=== PATIENT | female | born 1995 | race Caucasian/White ===

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

== ENCOUNTER 2017-06-16 14:52 | Emergency (ER) | payer BC ==
[2017-06-16 16:19] VITALS: BP 132/87
--- NOTE | 2017-06-16 17:16 | UC ---
Shoulder Pain HPI - HPI Summary HPI Summary: Pt c/o left shoulder pain s/p falling from a chair last night while intoxicated. Pt was sitting and slipped and fell onto left shoulder. Woke this morning with pain with ROM. 2. Pt c/o cough x4 days and has concern that she has "bronchitis" - History of Current Complaint Chief Complaint: UCUpperExtremity Stated Complaint: INJ LT SHOULDER,COUGH,CHANCE Time Seen by Provider: 06/16/17 16:34 Hx Obtained From: Patient Hx Last Menstrual Period: 3 WKS AGO ?: No Onset/Duration: Sudden Onset Timing: Constant - shoulder Severity Initially: Mild - pt was intoxicated when she fell Severity Currently: Moderate - s/p fall from sitting position. Location Of Pain: Is Discrete @ - left shoulder Character: Dull, Aching, Stiffness Aggravating Factor(s): Movement Alleviating Factor(s): Rest Associated Signs And Symptoms: Positive: Bruising Related History: Dominant Hand Right - Risk Factors Non-Orthopedic Risk Factor: Negative DVT Risk Factors: Oral Contraceptives Septic Arthritis Risk Factor: Negative - Allergies/Home Medications Allergies/Adverse Reactions: Allergies Allergy/AdvReac Type Severity Reaction Status Date / Time No Known Allergies Allergy Verified 06/16/17 16:19 Home Medications: Home Medications Norethindrone Acetate-Ethinyl [Lo Loestrin Fe 1 mg-10 Mcg / 10 Mcg] 1 tab PO DAILY 06/16/17 [History Confirmed 06/16/17] PMH/Surg Hx/FS Hx/Imm Hx Previously Healthy: Yes Other History Of: Negative For: HIV, Hepatitis B, Hepatitis C, Anticoagulant Therapy - Surgical History Surgical History: Yes Surgery Procedure, Year, and Place: SX REPAIR OF NOSE FX. - Family History Known Family History: Positive: Hypertension Negative: Cardiac Disease - Social History Occupation: Student - [employer] Lives: Dormitory/Roommates Alcohol Use: Weekly Substance Use Type: None Smoking Status (MU): Never Smoked Tobacco Have You Smoked in the Last Year: No - Immunization History Most Recent Influenza Vaccination: None Most Recent Tetanus Shot: UTD Most Recent Pneumonia Vaccination: n/a Vaccination Up to Date: Yes Review of Systems Constitutional: Fatigue Skin: Negative Eyes: Negative ENT: Other - nasal congestion Respiratory: Cough Cardiovascular: Negative Gastrointestinal: Negative Genitourinary: Negative Motor: Decreased ROM - left shoulder Musculoskeletal: Arthralgia - left shoulder, Decreased ROM, Myalgia - left shoulder Neurological: Negative Psychological: Negative Is Patient Immunocompromised?: No All Other Systems Reviewed And Are Negative: Yes Physical Exam Triage Information Reviewed: Yes Appearance: Ill-Appearing - pt admits she is hung over Vital Signs: Initial Vital Signs Temp 98.7 F 06/16/17 16:11 Pulse 73 06/16/17 16:11 Resp 16 06/16/17 16:11 BP 132/87 06/16/17 16:11 Pulse Ox 100 06/16/17 16:11 Vital Signs Reviewed: Yes Eye Exam: Normal ENT Exam: Other ENT: Positive: Nasal congestion Dental Exam: Normal Neck exam: Normal Respiratory Exam: Normal Cardiovascular Exam: Normal Musculoskeletal: Positive: Strength Limited @ - left shoulder, ROM Limited @ - left shoulder, Other: - point tenderness, left shoulder distal posterior scapula Neurological Exam: Normal Psychological Exam: Normal Skin Exam: Normal Shoulder Course/Dx - Course Course Of Treatment: xray: FINDINGS: There is no acute bony change. The a.c. and glenohumeral joints are intact. Soft. tissues are normal. IMPRESSION: NO ACUTE BONY CHANGE. - Differential Dx/Diagnosis Differential Diagnosis/HQI/PQRI: Contusion, Fracture (Closed), Other - bronchitis Provider Diagnoses: bronchitis. left shoulder contusion Discharge - Discharge Plan Condition: Stable Disposition: HOME Prescriptions: Azithromycin TAB* [Zithromax TAB (Z-SHANDA) 250 mg #6 tabs] 2 tab PO .TODAY, THEN 1 DAILY #1 shanda predniSONE TAB* [Deltasone TAB*] 20 mg PO DAILY #4 tab Patient Education Materials: Acute Bronchitis (ED), Shoulder Pain (ED) Referrals: Toño Marina MD [Medical Doctor] - If Needed Non Staff,Doctor [Primary Care Provider] - If Needed Additional Instructions: Please follow up with your PCP or return to clinic. We have provided a referral to an orthopedic provider to follow up with as needed.
--- NOTE | 2017-06-16 17:21 | RAD ---
INDICATION: Left shoulder injury COMPARISON: None TECHNIQUE: Routine frontal, Y and axial views were obtained. FINDINGS: There is no acute bony change. The a.c. and glenohumeral joints are intact. Soft tissues are normal. IMPRESSION: NO ACUTE BONY CHANGE.
== END 2017-06-16 17:45 | disposition home or self-care (01) ==
LOC: UCCORT 14:52
DX: S40.012A Contusion of left shoulder, initial encounter (principal); W07.XXXA Fall from chair, initial encounter; Y93.9 Activity, unspecified; Y92.9 Unspecified place or not applicable; J40 Bronchitis, not specified as acute or chronic
CPT/HCPCS: 99212; G0463

== ENCOUNTER 2017-09-09 11:28 | Emergency (ER) | payer BC ==
[2017-09-09 14:53] VITALS: BP 114/66
--- NOTE | 2017-09-09 15:02 | UC ---
Throat Pain/Nasal Daniel HPI - HPI Summary HPI Summary: 22 y/o female presents to the urgent care c/o sore throat, RODRIGEZ, dry cough and body aches since last night. Pt reports Pain w/ swallowing is 8/10. she took ibuprofen PO to alleviate symptoms. Pt denies fever, nasal congestion, SOB, chest pain, abdominal pain, N/V/D - History of Current Complaint Chief Complaint: UCGeneralIllness Stated Complaint: SORE THROAT Time Seen by Provider: 09/09/17 14:52 Hx Obtained From: Patient Hx Last Menstrual Period: 3 WKS AGO ?: No Onset/Duration: Gradual Onset, Lasting Days - 1 day, Still Present, Worse Since - this morning Severity: Moderate Pain Intensity: 8 Pain Scale Used: 0-10 Numeric Cough: Nonproductive - dry Associated Signs & Symptoms: Positive: Nasal Discharge, Fever - Epiglottits Risk Factors Epiglottis Risk Factors: Negative - Allergies/Home Medications Allergies/Adverse Reactions: Allergies Allergy/AdvReac Type Severity Reaction Status Date / Time No Known Allergies Allergy Verified 09/09/17 14:53 PMH/Surg Hx/FS Hx/Imm Hx Previously Healthy: Yes GI/ History: Gastroesophageal Reflux Other History Of: Negative For: HIV, Hepatitis B, Hepatitis C, Anticoagulant Therapy - Surgical History Surgical History: Yes Surgery Procedure, Year, and Place: SX REPAIR OF NOSE FX. - Family History Known Family History: Positive: Hypertension Negative: Cardiac Disease - Social History Occupation: Student Lives: With Family Alcohol Use: Weekly Substance Use Type: None Smoking Status (MU): Never Smoked Tobacco Have You Smoked in the Last Year: No - Immunization History Most Recent Influenza Vaccination: None Most Recent Tetanus Shot: UTD Most Recent Pneumonia Vaccination: n/a Vaccination Up to Date: Yes Review of Systems Constitutional: Fever, Chills, Other - body aches Skin: Negative Eyes: Negative ENT: Sore Throat, Nasal Discharge, Sinus Congestion Respiratory: Cough - dry Cardiovascular: Negative Gastrointestinal: Negative Genitourinary: Negative Motor: Negative Neurovascular: Negative Musculoskeletal: Negative Neurological: Headache Psychological: Negative Is Patient Immunocompromised?: No All Other Systems Reviewed And Are Negative: Yes Physical Exam Triage Information Reviewed: Yes Vital Signs: Initial Vital Signs Temp 98.7 F 09/09/17 14:49 Pulse 76 09/09/17 14:49 Resp 14 09/09/17 14:49 BP 114/66 09/09/17 14:49 Pulse Ox 99 09/09/17 14:49 - Additional Comments VITAL SIGNS: Reviewed. GENERAL: Patient is a well developed and nourished female who is sitting comfortable in the examining table. Patient is not in any acute respiratory distress. HEAD AND FACE: No signs of trauma. No ecchymosis, hematomas or skull depressions. No sinus tenderness. EYES: PERRLA, EOMI x 2, No injected conjunctiva, no nystagmus. No photophobia. EARS: Hearing grossly intact. Ear canals and tympanic membranes are within normal limits. MOUTH: Positive pharynx with erythema, no exudates, palatal petechiae. Mild B/L tonsillar enlargement with no exudate. Uvula in midline. NECK: Supple, trachea is midline, Positive anterior cervical lymphadenopathy, no JVD, no carotid bruit, no c-spine tenderness, neck with full ROM. No meningeal signs, no Kernig's or brudzinskis signs. CHEST: Symmetric, no tenderness at palpation LUNGS: Clear to auscultation bilaterally. No wheezing or crackles. CVS: Regular rate and rhythm, S1 and S2 present, no murmurs or gallops appreciated. ABDOMEN: Soft, non-tender. No signs of distention. No rebound no guarding, and no masses palpated. Bowel sounds are normal. EXTREMITIES: FROM in all major joints, no edema, no cyanosis or clubbing. NEURO: Alert and oriented x 3. No acute neurological deficits. Speech is normal and follows commands. SKIN: Dry and warm Throat Pain/Nasal Course/Dx - Course Course Of Treatment: 22 y/o female presents to the urgent care c/o sore throat, RODRIGEZ, dry cough and body aches since last night. Pt reports Pain w/ swallowing is 8/10. she took ibuprofen PO to alleviate symptoms. Pt denies fever, nasal congestion, SOB, chest pain, abdominal pain, N/V/D. Hx obtained. Pt with pharyngitis on examination. Rapid strep ordered, result: negative.Influenza A&B ordered: negative Pt Rx Ibuprofen Po to alelviataes symptoms. Advised on hand washing. Pt advised to rest, increase fluid intake, eat well and avoid strenuous exercise. If symptoms do not improve or worsen advised to return to the urgent care or f/u with her PCP for further evaluation and treatment. Pt understood and agreed with plan of care. - Differential Dx/Diagnosis Differential Diagnosis/HQI/PQRI: Influenza, Laryngitis, Mononucleosis, Pharyngitis, Sinusitis, Tonsillitis Provider Diagnoses: 1- Viral pharyngitis Discharge - Discharge Plan Condition: Stable Disposition: HOME Prescriptions: Ibuprofen TAB* [Motrin TAB* 600 MG] 600 mg PO Q6H PRN #20 tab PRN Reason: Pain Patient Education Materials: Pharyngitis (ED) Forms: *School Release Referrals: [facility] [place] [facility] [Outside] - 3 Days Additional Instructions: 1-Please take ibuprofen PO q6-8hrs prn as instructed after meals to alleviate pain and swelling. Increase fluid intake, eat well, rest and avoid strenuous exercise 2-If symptoms do not improve or worsen please return to the urgent care or f/u with your PCP for further evaluation and treatment. 3- Take Delsym q4-6hrs prn to alleviate cough
== END 2017-09-09 15:33 | disposition home or self-care (01) ==
LOC: UCCORT 11:28
DX: J02.8 Acute pharyngitis due to other specified organisms (principal)
CPT/HCPCS: 87502; 87651; 99212; G0463